=== PATIENT | male | born 1940 | race Caucasian/White ===

== ENCOUNTER 2018-06-24 10:58 | Observation (INO) ==
[2018-06-24 11:31] LABS: Hematocrit 40.5 % (42.0-52.0); Hemoglobin 13.1 gm/dL (13.5-18.0); Mean Cell Volume 101.8 fl (78-100); Mean Corpuscular Hemoglobin 32.9 pg (27-31); Mean Corpuscular Hgb Conc 32.3 g/dl (32-36); Mean Platelet Volume 8.4 fl (8-11.3); Neutrophil # 11.8 K/mm3 (1.3-6.0); Platelet Count 416 K/mm3 (150-450); Red Blood Count 3.98 M/mm3 (4.7-6.0); Red Cell Distribution Width 15.6 % (11.5-14.0)
[2018-06-24 11:39] LABS: Anion Gap 27.8 mmol/L (6.8-13.8); BUN/Creatinine Ratio 8.8 (9.0-21.6); Bilirubin, Total 0.9 mg/dL (0.0-1.1); Ca. Corrected For Albumin 9.9 mg/dL (8.4-10.2); Calcium * 9.4 mg/dL (7.9-10.9); Carbon Dioxide 18.3 mmol/L (24-32.6); Potassium 3.1 mmol/L (3.4-4.6)
[2018-06-24 13:11] LABS: Urine Bilirubin 3 mg/dl (NEGATIVE); Urine Blood Negative /ul (NEGATIVE); Urine Ketone 15 mg/dL (NEGATIVE); Urine Nitrite Negative (NEGATIVE); Urine Protein Negative (NEGATIVE); Urine Specific Gravity 1.015 SP.GR. (1.005-1.030); Urine Urobilinogen Normal (NORMAL)
[2018-06-24 13:17] LABS: Urine Appearance Clear (CLEAR); Urine Bacteria TRACE; Urine Color Dark Yellow; Urine RBC None Seen /hpf (0-5); Urine WBC 0-5 /hpf (0-5)
[2018-06-24] MEDS ORDERED: NORMAL SALINE 1,000 ML IV ONE ×2 (13:31→20:04)
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
[2018-06-24] MEDS ORDERED: NON-FORMULARY 1 DOSE DOSE (Acetaminophen 650 MG) PO PRN (19:40)
[2018-06-24] MEDS ORDERED: ACETAMINOPHEN 325 MG TABLET PO PRN (20:30)
[2018-06-24] MEDS ORDERED: FINASTERIDE 5 MG TABLET PO SCH (21:00)
[2018-06-24] MEDS ORDERED: FUROSEMIDE 40 MG TABLET PO SCH (21:00)
[2018-06-24] MEDS ORDERED: ROSUVASTATIN CALCIUM 20 MG TABLET PO SCH (21:00)
[2018-06-25 05:36] LABS: Hematocrit 35.3 % (42.0-52.0); Hemoglobin 11.3 gm/dL (13.5-18.0); Mean Cell Volume 100.9 fl (78-100); Mean Corpuscular Hemoglobin 32.3 pg (27-31); Mean Platelet Volume 8.4 fl (8-11.3); Neutrophil % 77.3 % (42-75.0); Platelet Count 340 K/mm3 (150-450); Red Cell Distribution Width 15.6 % (11.5-14.0); White Blood Count 10.4 K/mm3 (4.0-10.5)
[2018-06-25 05:40] LABS: Anion Gap 12.1 mmol/L (6.8-13.8); BUN/Creatinine Ratio 16.3 (9.0-21.6); Calcium * 8.6 mg/dL (7.9-10.9); Carbon Dioxide 28.7 mmol/L (24-32.6); Estimated Creat Clear 45.2; Potassium 2.8 mmol/L (3.4-4.6)
[2018-06-25] MEDS ORDERED: THIAMINE HCL 100 MG TABLET PO SCH (09:00)
[2018-06-25] MEDS ORDERED: SERTRALINE HCL 50 MG TABLET PO SCH (09:00)
[2018-06-25] MEDS ORDERED: ASPIRIN 325 MG TABLET.DR PO SCH (09:00)
[2018-06-25] MEDS ORDERED: CLOPIDOGREL BISULFATE 75 MG TABLET PO SCH (09:00)
[2018-06-25] MEDS: POTASSIUM CHLORIDE 20 MEQ TABLET.SA PO SCH ×2 (09:19→17:47)
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
[2018-06-26 01:06] VITALS: BP 123/50
== END 2018-06-25 19:55 ==
LOC: MS 10:58 → ER 10:58 → MS 14:45
PROVIDERS: ADMIT Family Medicine; ATTEND Family Medicine
CPT/HCPCS: 36415; 70450; 71020; 71046; 80048; 80053; 81001; 85025; 93005; 96360; 96361; 97161; 99285; G0378

== ENCOUNTER 2018-11-15 21:40 | Inpatient (IN) ==
[2018-11-15 22:12] LABS: Hemoglobin 10.9 gm/dL (13.5-18.0); Mean Cell Volume 102.2 fl (78-100); Mean Corpuscular Hemoglobin 34.8 pg (27-31); Mean Corpuscular Hgb Conc 34.1 g/dl (32-36); Mean Platelet Volume 9.2 fl (8-11.3); Neutrophil # 2.6 K/mm3 (1.3-6.0); Neutrophil % 50.3 % (42-75.0); Platelet Count 265 K/mm3 (150-450); Red Blood Count 3.13 M/mm3 (4.7-6.0); Red Cell Distribution Width 15.6 % (11.5-14.0); White Blood Count 5.2 K/mm3 (4.0-10.5)
[2018-11-15 22:32] LABS: Albumin * 1.8 gm/dl (3.4-5.0); BUN/Creatinine Ratio 7.3 (9.0-21.6); Bilirubin, Total 0.4 mg/dL (0.0-1.1); Ca. Corrected For Albumin 8.7 mg/dL (8.4-10.2); Calcium * 7.3 mg/dL (7.9-10.9); Carbon Dioxide 28.4 mmol/L (24-32.6); Total Protein 5.2 gm/dL (6.2-8.2)
[2018-11-15 22:36] LABS: Troponin I 0.027 ng/mL (0.00-0.10)
[2018-11-15 22:38] LABS: Potassium 2.4 mmol/L (3.4-4.6)
[2018-11-15] MEDS ORDERED: POTASSIUM CHLORIDE IN WATER 100 ML IV ONE (22:44)
--- NOTE | 2018-11-15 23:29 | ERNOTE ---
Dyspnea - Date Date of Service: 11/15/18 - General Presenting Symptoms: shortness of breath, other - weakness Time Seen by Provider: 11/15/18 21:52 Exam Limitations: no limitations - Immun/Allergies/Home Medications Immunizations: IMMUNIZATION HX Immunizations Up to Date Yes Allergies/Adverse Reactions: Allergies No Known Allergies Allergy (Verified 11/15/18 21:43) Home Medications: HOME MEDICATIONS Acetaminophen [Tylenol] 650 mg PO Q4H PRN 06/24/18 [Last Taken Unknown] Aspirin 325 mg PO DAILY 06/24/18 [Last Taken 06/24/18] Atorvastatin Calcium 40 mg PO HS 06/24/18 [Last Taken Unknown] Clopidogrel Bisulfate [Plavix] 75 mg PO DAILY 06/24/18 [Last Taken 06/24/18] Finasteride [Proscar] 5 mg PO HS 06/24/18 [Last Taken Unknown] Folic Acid 1 mg PO DAILY 06/24/18 [Last Taken 06/24/18] Furosemide [Lasix] 40 mg PO BID 06/24/18 [Last Taken 06/24/18] Sennosides [Senokot] 8.6 mg PO BID 06/24/18 [Last Taken 06/24/18] Potassium Chloride [K-Dur] 20 meq PO DAILY #30 tab 06/25/18 [Last Taken Unknown] HYDROcodone/ACETAMINOPHEN [Hydrocodon-Acetaminophen 5-325] 1 ea PO TID PRN [Last Taken Unknown] - History of Present Illness Narrative: patient c/o weakness , dyspnea, onset last several days Severity: moderate Treatment ZOOKEEPER: none Initiating event: Reports: none Frequency of episodes: Reports: occassional episodes Modifying Factors - (Improves): Reports: nothing Modifying Factors (Worsens): Reports: activity Associated Symptoms-Dyspnea: Reports: dizziness, lightheadedness, weakness Prior Treatment: Reports: recently seen, treated by physician Review of Systems - Review of Systems Constitutional: Present: See HPI, weakness, fatigue, malaise EYE: Present: no symptoms reported ENT: Present: no symptoms reported Respiratory: Present: See HPI, shortness of breath Cardiology: Present: no symptoms reported Gastrointestinal/Abdominal: Present: no symptoms reported Genitourinary: Present: no symptoms reported Musculoskeletal: Present: no symptoms reported Skin: Present: no symptoms reported Neurological: Present: dizziness/light-headedness, weakness Endocrine: Present: no symptoms reported Medical History (Updated 07/01/18 @ 13:56 by Adrien Herrera DO) History of BPH History of blood clot in brain Hx of constipation Hx of hyperlipidemia Hx of myocardial infarction hx of a feeding tube hx of lower extremity weakness Surgical History: Surgical History (Updated 07/01/18 @ 13:56 by Adrien Herrera DO) Hx of CABG Hx of skin graft Family History: Family History (Updated 06/24/18 @ 11:10 by Nola Miranda RN) Other No pertinent family history Social History: (Last Reviewed 11/15/18 @ 22:16 by Alondra Yates RN) Tobacco: Smoking Status: Never smoker Physical Exam - Physical Exam General Appearance: Present: mild distress, anxious Head Exam: Present: normal inspection, no evidence of injury Eye Exam: Normal inspection: bilateral, PERRL: bilateral, EOMI: bilateral Ears, Nose, Throat: Present: normal ENT inspection, normal pharynx Neck: Present: normal inspection, nontender Respiratory: Present: no respiratory distress, normal breath sounds, no accessory muscle use, chest nontender, lungs clear Cardiovascular/Chest: Present: regular rate, rhythm, no murmur, normal peripheral pulses Gastrointestinal/Abdominal: Present: normal bowel sounds, nontender, nondistended, soft, no organomegaly Back Exam: Present: normal inspection, normal range of motion, no CVA tenderness, no vertebral tenderness Extremity Exam: Present: normal inspection, non-tender Neurological Exam: Present: alert, oriented, normal mood/affect, no motor/sensory deficits Skin Exam: Present: normal color, warm/dry Lymphatic Exam: Present: no adenopathy Progress - Date and Time Seen: Date and Time: 11/15/18 23:26 condition unchanged, case discussed with dr bonner, accepted for admission to observation - Results and Orders Patient's Lab Results:: I have reviewed the patient's lab results. - Vital Signs Patient's Vital Signs:: I have reviewed the patient's vital signs. Vital Signs: Vital Signs 11/15/18 21:40 11/15/18 21:43 11/15/18 22:13 Temperature 36.5 C Pulse Rate 100 89 109 H Respiratory Rate 17 Blood Pressure 119/61 O2 Sat by Pulse Oximetry 99 11/15/18 22:24 11/15/18 23:00 Temperature Pulse Rate 88 85 Respiratory Rate 18 16 Blood Pressure 98/53 103/55 O2 Sat by Pulse Oximetry 99 98 - EKG EKG #1 EKG: NSR - X-Ray X-Ray #1 X-Ray: chest Interpretation: Interp. by me - copd, no acute process - Progress/Reassessment Chief Complaint: Dyspnea Progress:: Unchanged - Transfer of Care Expected Disposition: Admit Plan - Plan Plan: to admit to observation Departure Clinical Impression: Dizziness, Hypokalemia - Departure Disposition: Short Term Hospital Inpatient Condition: Stable
[2018-11-15] MEDS ORDERED: NORMAL SALINE 1,000 ML IV PRN (23:33)
[2018-11-16] MEDS ORDERED: POTASSIUM CHLORIDE 20 MEQ TABLET.SA PO SCH ×2 (09:00→21:00)
[2018-11-16] MEDS ORDERED: HYDROcodone/ACETAMINOPHEN 1 EACH TABLET PO PRN (09:32)
[2018-11-16] MEDS ORDERED: ACETAMINOPHEN 325 MG TABLET PO PRN (09:32)
[2018-11-16] MEDS ORDERED: DIATRIZOATE MEGLUMINE, SODIUM 30 ML BTL PO ONE (09:41)
[2018-11-16 10:25] LABS: Anion Gap 12.9 mmol/L (6.8-13.8); BUN/Creatinine Ratio 5.8 (9.0-21.6); Calcium * 7.7 mg/dL (7.9-10.9); Carbon Dioxide 28.5 mmol/L (24-32.6); Estimated Creat Clear 43.7
[2018-11-16 10:45] LABS: Potassium 2.4 mmol/L (3.4-4.6)
--- NOTE | 2018-11-16 13:23 | HP ---
Chief Complaint - Chief Complaint Date of Service: 11/16/18 Time of Service: 08:00 Chief Complaint: Weakness, dyspnea, lightheadedness, seizure like activity, History of Present Illness: Jj Christianson is a 78-year-old male presented to emergency room with increased weakness, shortness of breath, lightheadedness especially when sitting up, and also seizure-like activity when he would sit up. He was evaluated in the emergency room and admitted to rehydrate. His past medical history includes CABG of multiple vessels but he does not know which ones specifically. The surgery was done 4 or 5 years ago. He is also had 2 back surgeries one with a cadaver graft and the other with an autograft. He is also had cataract surgery. He reports that he is lost a great deal of weight. He has some choking episodes with swallowing on occasion and he has very early satiety eating only 25 to 50% of his meals which usually consists of TV dinners. He is 78 years old and is very thin. His abdomen is scaphoid and there is some nodularity on palpation especially in the lower mid to left lower quadrant area. His laboratory work shows him malnourished with very low protein and albumin. His potassium is low. His blood gases in ER showed him to have respiratory alkalosis with pH of 7.69. PO2 and O2 sats are normal but the CO2 is low. I had ordered a CT of his chest abdomen and pelvis with contrast. And taking him to x-ray in the wheelchair he became lightheaded and then had some seizure- like activity. He was on continuous cardiac monitoring which picked up a sustained run of what I believed to be SVT rather than VT. When he was laid back down he converted back into normal sinus rhythm but with a intermittent right bundle branch block and left anterior fascicular block. His baseline EKG does not show any blocks. The x-rays obviously were not completed and he was brought back to his room where he was placed back in bed in began to feel better almost immediately after lying down. I recommended and they have agreed that he should be transferred and I will contact [facility] to see if they will accept. He is being transferred for cardiology services but may also need neurological and gastroenterology services as well. His excessive weight loss that was not planned, early satiety, and marked hypoalbuminemia our concerns that need to be diagnosed as well. Medical History (Updated 11/15/18 @ 23:28 by Alfred Chatman DO) History of BPH History of blood clot in brain Hx of constipation Hx of hyperlipidemia Hx of myocardial infarction hx of a feeding tube hx of lower extremity weakness Surgical History: Surgical History (Updated 07/01/18 @ 13:56 by Adrien Herrera DO) Hx of CABG Hx of skin graft Family History: Family History (Updated 06/24/18 @ 11:10 by Nola Miranda RN) Other No pertinent family history Social History: (Last Reviewed 11/16/18 @ 00:14 by Fallon Christie RN) Tobacco: Smoking Status: Never smoker Review Of Systems (GEN) - Review of Systems Generalized/Overall Review: Present: Weakness, Malaise, Fatigue, Weight loss EENTM: Present: No Symptoms Reported Respiratory: Present: Shortness of Breath Cardiac: Present: Palpitations, Other - Lightheadedness Abdominal: Present: No Symptoms Reported, Other - He has difficulty swallowing and has early satiety Genitourinary: Present: No Symptoms Reported Musculoskeletal: Present: No Symptoms Reported Neurological: Present: Seizure - Seizure-like activity and appears to be associated with a tachydysrhythmia when he sits up., Weakness Skin: Present: Change in Color Immunizations: IMMUNIZATION HX Immunizations Up to Date Yes Allergies/Adverse Reactions: Allergies Allergy/AdvReac Type Severity Reaction Status Date / Time No Known Allergies Allergy Verified 11/15/18 21:43 Home Medications: HOME MEDICATIONS Acetaminophen [Tylenol] 650 mg PO Q4H PRN 06/24/18 [Last Taken Unknown] Aspirin 325 mg PO DAILY 06/24/18 [Last Taken 06/24/18] Atorvastatin Calcium 40 mg PO HS 06/24/18 [Last Taken Unknown] Clopidogrel Bisulfate [Plavix] 75 mg PO DAILY 06/24/18 [Last Taken 06/24/18] Finasteride [Proscar] 5 mg PO HS 06/24/18 [Last Taken Unknown] Folic Acid 1 mg PO DAILY 06/24/18 [Last Taken 06/24/18] Furosemide [Lasix] 40 mg PO BID 06/24/18 [Last Taken 06/24/18] HYDROcodone/ACETAMINOPHEN [Hydrocodon-Acetaminophen 5-325] 1 ea PO TID PRN 11/15/18 [Last Taken Unknown] Potassium Chloride [K-Dur] 20 meq PO HS 11/16/18 [Last Taken Unknown] Exam - Exam Vital Signs: Vital Signs - Last Taken Temp 36.9 C 11/16/18 11:18 Pulse 72 11/16/18 11:18 Resp 18 11/16/18 11:18 BP 112/57 11/16/18 11:18 Pulse Ox 93 11/16/18 11:18 Constitutional: Present: Alert, Oriented x3, Cooperative, Well developed, Elderly, Thin and frail ENT Exam: Present: normal ENT inspection, hard of hearing Eye Exam: bilateral eye: normal inspection, PERRL, EOMI Neck: Present: non-tender, full range of motion Back Exam: Present: decreased range of motion - Lumbar spine. There are incisions on the back from previous back surgeries. Breasts: Present: Nontender Respiratory: Present: lungs clear, no respiratory distress, no accessory muscle use, decreased breath sounds, expiration (prolonged) Cardiovascular/Chest: Present: normal peripheral pulses, regular rate, rhythm - But with intermittent paroxysmal SVT in which he is symptomatic. Peripheral Pulses: carotid (R): 2+, carotid (L): 2+, radial (R): 2+, radial (L): 2+ Abdomen: Present: Normal bowel sounds, soft, tender, mass palpable. Absent: guarding, rigidity, rebound tenderness, CVA tenderness, suprapubic tenderness /Rectal: Present: Exam deferred Extremity: Present: normal range of motion, non-tender, normal inspection, no pedal edema, no calf tenderness, normal capillary refill Skin Exam: Present: pallor Lymphatic: Present: no adenopathy Neurologic: Present: form tamper operator II-XII nml as tested, no motor/sensory deficits, alert, normal mood/affect, oriented x 3, other - Presbycusis Appearance: Present: disheveled Eye contact: Present: cooperative, good eye contact, normal speech Thoughts: Present: normal thought pattern, no apparent hallucination Diagnostic Studies: Abnormal Lab Results 11/15/18 11/15/18 11/15/18 Range/Units 21:57 22:12 22:38 RBC 3.13 L (4.7-6.0) M/mm3 Hgb 10.9 L (13.5-18.0) gm/dL Hct 32.0 L (42.0-52.0) % MCV 102.2 H (78-100) fl MCH 34.8 H (27-31) pg RDW 15.6 H (11.5-14.0) % pCO2 23.1 L (35.0-48.0) mmHg ABG pH 7.61 H (7.35-7.45) ABG O2 Sat (Measured) 98.3 H (94.0-98.0) % Potassium 2.4 L* (3.4-4.6) mmol/L Est GFR (Non-Af Amer) (60-130) mL/min BUN/Creatinine Ratio 7.3 L (9.0-21.6) Random Glucose (70-110) mg/dL Calcium 7.3 L (7.9-10.9) mg/dL ALT 0 L (19-67) U/L B-Natriuretic Peptide 1315 H (5-650) pg/mL Total Protein 5.2 L (6.2-8.2) gm/dL Albumin 1.8 L (3.4-5.0) gm/dl 11/16/18 Range/Units 09:47 RBC (4.7-6.0) M/mm3 Hgb (13.5-18.0) gm/dL Hct (42.0-52.0) % MCV (78-100) fl MCH (27-31) pg RDW (11.5-14.0) % pCO2 (35.0-48.0) mmHg ABG pH (7.35-7.45) ABG O2 Sat (Measured) (94.0-98.0) % Potassium 2.4 L* (3.4-4.6) mmol/L Est GFR (Non-Af Amer) 54 L (60-130) mL/min BUN/Creatinine Ratio 5.8 L (9.0-21.6) Random Glucose 120 H (70-110) mg/dL Calcium 7.7 L (7.9-10.9) mg/dL ALT (19-67) U/L B-Natriuretic Peptide (5-650) pg/mL Total Protein (6.2-8.2) gm/dL Albumin (3.4-5.0) gm/dl Laboratory Results WBC 5.2 K/mm3 (4.0-10.5) 11/15/18 21:57 RBC 3.13 M/mm3 (4.7-6.0) L 11/15/18 21:57 Hgb 10.9 gm/dL (13.5-18.0) L 11/15/18 21:57 Hct 32.0 % (42.0-52.0) L 11/15/18 21:57 MCV 102.2 fl (78-100) H 11/15/18 21:57 MCH 34.8 pg (27-31) H 11/15/18 21:57 MCHC 34.1 g/dl (32-36) 11/15/18 21:57 RDW 15.6 % (11.5-14.0) H 11/15/18 21:57 Plt Count 265 K/mm3 (150-450) 11/15/18 21:57 MPV 9.2 fl (8-11.3) 11/15/18 21:57 Immature Gran % (Auto) 0.20 % (0.001-0.429) 11/15/18 21:57 Immature Gran # (Auto) 0.01 K/mm3 (0.000-0.0310) 11/15/18 21:57 50.3 % (42-75.0) 11/15/18 21:57 39.0 % (20-51) 11/15/18 21:57 7.6 % (0.0-9) 11/15/18 21:57 2.3 % (0.0-3.0) 11/15/18 21:57 0.6 % (0.0-1.0) 11/15/18 21:57 Nucleated RBC % 0.0 k/mm3 (0-1) 11/15/18 21:57 2.6 K/mm3 (1.3-6.0) 11/15/18 21:57 2.01 k/mm3 (1.5-3.5) 11/15/18 21:57 0.4 k/mm3 (0.0-1.0) 11/15/18 21:57 0.1 k/mm3 (0.0-0.7) 11/15/18 21:57 Absolute Basophils 0.0 k/mm3 (0.0-0.1) 11/15/18 21:57 pCO2 23.1 mmHg (35.0-48.0) L 11/15/18 22:38 pO2 94.7 mmHg (83.0-108.0) 11/15/18 22:38 HCO3 22.6 mmol/L (21.0-28.0) 11/15/18 22:38 Total CO2 23.3 mmol/L (19.0-24.0) 11/15/18 22:38 Base Excess 2.2 mmol/L (-2.0-3.0) 11/15/18 22:38 ABG pH 7.61 (7.35-7.45) H 11/15/18 22:38 ABG O2 Sat (Measured) 98.3 % (94.0-98.0) H 11/15/18 22:38 Sodium 142 mmol/L (132-142) 11/16/18 09:47 142 mmol/L (130-142) 11/16/18 09:47 Potassium 2.4 mmol/L (3.4-4.6) L* 11/16/18 09:47 Chloride 103 mmol/L (97-106) 11/16/18 09:47 Carbon Dioxide 28.5 mmol/L (24-32.6) 11/16/18 09:47 12.9 mmol/L (6.8-13.8) 11/16/18 09:47 BUN 8 mg/dL (6-23) 11/16/18 09:47 1.37 mg/dL (0.4-1.4) 11/16/18 09:47 Est GFR (Non-Af Amer) 54 mL/min (60-130) L 11/16/18 09:47 5.8 (9.0-21.6) L 11/16/18 09:47 120 mg/dL (70-110) H 11/16/18 09:47 Calcium 7.7 mg/dL (7.9-10.9) L 11/16/18 09:47 Calcium Adj for Albumin 8.7 mg/dL (8.4-10.2) 11/15/18 22:12 0.4 mg/dL (0.0-1.1) 11/15/18 22:12 AST 15 U/L (0-48) 11/15/18 22:12 ALT 0 U/L (19-67) L 11/15/18 22:12 150 U/L (50-170) 11/15/18 22:12 0.027 ng/mL (0.00-0.10) 11/15/18 22:12 B-Natriuretic Peptide 1315 pg/mL (5-650) H 11/15/18 22:12 5.2 gm/dL (6.2-8.2) L 11/15/18 22:12 1.8 gm/dl (3.4-5.0) L 11/15/18 22:12 Assessment/Plan - Narrative Narrative: Mr. Christianson will be continuously monitored with cardiac monitoring until his departure. I am not starting any medications for concern of advancing his heart block. I will defer that to cardiology at [facility]. - Assessment/Plan (1) Fatigue Problem: Acute Qualifiers: Fatigue type: chronic, unspecified Qualified Code(s): R53.82 - Chronic fatigue, unspecified (2) Malnutrition Problem: Acute Qualifiers: Malnutrition type: protein-calorie malnutrition Protein-calorie malnutrition severity: moderate Qualified Code(s): E44.0 - Moderate protein- calorie malnutrition (3) Abnormal weight loss Problem: Acute (4) Respiratory alkalosis Problem: Acute (5) Hypovolemia Problem: Acute (6) Pre-syncope Problem: Acute
--- NOTE | 2018-11-16 14:30 | DS ---
Transfer Discharge Summary - Diagnosis(s)/Problems (1) Fatigue Problem: Acute (2) Malnutrition Problem: Acute (3) Abnormal weight loss Problem: Acute (4) Respiratory alkalosis Problem: Acute (5) Hypovolemia Problem: Acute (6) Pre-syncope Problem: Acute (7) Paroxysmal SVT (supraventricular tachycardia) Problem: Acute (8) Seizure-like activity Problem: Acute (9) Hypokalemia Problem: Acute - Course Description of Stay: Jj Christianson was admitted for general debilitation reasons with weakness, shortness of breath, near syncope, episodes of seizure-like activity when sitting up. His evaluation in the ER showed him to be hypokalemic at 2.4, hypoproteinemic and hypoalbuminemic, mild leukocytosis, and unexplained abnormal weight loss. His examination shows him to be hard of hearing but otherwise is alert and appropriate in answering. At rest in a supine or semi-recumbent position he is in normal sinus rhythm. When he sits up he occasionally goes into a tachydysrhythmia which I believe to be paroxysmal SVT and then when he lies down goes back into normal sinus rhythm. This morning I witnessed him have an episode of lightheadedness while he was up sitting on a bedside commode. He had not been straining to stool and only passed some flatus. When he was laid back down he began to feel better. His renal status is excellent. I elected to proceed with CT chest abdomen and pelvis with contrast. And sitting him up in a wheelchair to take him to x-ray he developed another of his near syncopal events and in fact his eyes did roll up and he had some twitching. He was on a nurse monitoring at that time which revealed a sustained episode of SVT. He was brought back to his room and placed in bed and began to feel better almost immediately. The x-rays were not completed. The twelve-lead EKG shows normal sinus rhythm at baseline. Twelve-lead after lying back down however shows what appears to be a left anterior fascicular block and perhaps a right bundle branch block. These are also intermittent and may be related to his profound hypokalemia. He has known coronary disease and had a CABG procedure done about 5 years ago. Believing he needs a cardiology evaluation I have elected to send him to [facility] where he will be admitted by Dr. Ely to CCU. She will coordinate his cardiology consultations. At the time of departure he is alert awake and in no distress. His heart is in normal sinus rhythm. He was given a potassium rider series in the emergency room and started on oral potassium. This was given last night about 10:00. I repeated his electrolytes this morning and potassium has not changed and is still at 2.4. I would like to thank Dr. Ely for her kind assistance in getting this patient transferred to [facility]. Procedures Performed: none - Results and Findings Results and Findings: Laboratory Results - last 24 hr 11/15/18 11/15/18 11/15/18 21:57 22:12 22:38 WBC 5.2 RBC 3.13 L Hgb 10.9 L Hct 32.0 L MCV 102.2 H MCH 34.8 H MCHC 34.1 RDW 15.6 H Plt Count 265 MPV 9.2 Immature Gran % (Auto) 0.20 Immature Gran # (Auto) 0.01 Neutrophils % 50.3 Lymphocytes % 39.0 Monocytes % 7.6 Eosinophils % 2.3 Basophils % 0.6 Nucleated RBC % 0.0 Neutrophils # 2.6 Lymphocytes # 2.01 Monocytes # 0.4 Eosinophils # 0.1 Absolute Basophils 0.0 pCO2 23.1 L pO2 94.7 HCO3 22.6 Total CO2 23.3 Base Excess 2.2 ABG pH 7.61 H ABG O2 Sat (Measured) 98.3 H Sodium 142 Plasma Sodium 142 Potassium 2.4 L* Chloride 104 Carbon Dioxide 28.4 Anion Gap 12.0 BUN 9 D Creatinine 1.23 Est GFR (Non-Af Amer) 61 BUN/Creatinine Ratio 7.3 L Random Glucose 97 Calcium 7.3 L Calcium Adj for Albumin 8.7 Total Bilirubin 0.4 AST 15 ALT 0 L Alkaline Phosphatase 150 Troponin I 0.027 B-Natriuretic Peptide 1315 H Total Protein 5.2 L Albumin 1.8 L 11/16/18 09:47 WBC RBC Hgb Hct MCV MCH MCHC RDW Plt Count MPV Immature Gran % (Auto) Immature Gran # (Auto) Neutrophils % Lymphocytes % Monocytes % Eosinophils % Basophils % Nucleated RBC % Neutrophils # Lymphocytes # Monocytes # Eosinophils # Absolute Basophils pCO2 pO2 HCO3 Total CO2 Base Excess ABG pH ABG O2 Sat (Measured) Sodium 142 Plasma Sodium 142 Potassium 2.4 L* Chloride 103 Carbon Dioxide 28.5 Anion Gap 12.9 BUN 8 Creatinine 1.37 Est GFR (Non-Af Amer) 54 L BUN/Creatinine Ratio 5.8 L Random Glucose 120 H Calcium 7.7 L Calcium Adj for Albumin Total Bilirubin AST ALT Alkaline Phosphatase Troponin I B-Natriuretic Peptide Total Protein Albumin - Medications Medications: Active Medications Sodium Chloride (Sodium Chloride 0.9%) 1,000 mls @ 30 mls/hr IV .Q24H PRN PRN Reason: HYDRATION Stop: 12/15/18 23:34 Last Admin: 11/16/18 06:30 Dose: 30 mls/hr Documented by: Potassium Chloride (K-Dur) 40 meq PO BIDWM BRONSON Stop: 12/16/18 09:01 Last Admin: 11/16/18 09:30 Dose: 40 meq Documented by: Discontinued Medications Diatrizoate Meglum/Diatrizoate Sod (Gastrografin Solution) 60 ml PO ONCE ONE Stop: 11/16/18 09:42 Last Admin: 11/16/18 10:04 Dose: 60 ml Documented by: Potassium Chloride/Water (Kcl 10 Meq/100 Ml Piggyback) 100 mls @ 100 mls/hr IV ONCE ONE Stop: 11/15/18 23:43 Last Infusion: 11/16/18 00:09 Dose: Infused Documented by: - Disposition Disposition: Short Term Hospital Inpatient Condition: Stable Discharge Date: 11/16/18 Discharge Time: 14:27
[2018-11-16 15:40] VITALS: BP 132/52
[2018-11-16] MEDS ORDERED: FINASTERIDE 5 MG TABLET PO SCH (21:00)
[2018-11-17] MEDS ORDERED: FOLIC ACID 1 MG TABLET PO SCH (09:00)
[2018-11-17] MEDS ORDERED: CLOPIDOGREL BISULFATE 75 MG TABLET PO SCH (09:00)
[2018-11-17] MEDS ORDERED: ASPIRIN 325 MG TABLET.DR PO SCH (09:00)
== END 2018-11-16 15:00 | disposition short-term general hospital (02) | DRG 641 ==
LOC: MS 21:40 → ER 21:40 → MS 11-16 00:03
PROVIDERS: ADMIT Family Medicine; ATTEND Family Medicine
DX: I47.1 Supraventricular tachycardia; R53.83 Other fatigue; E88.09 Other disorders of plasma-protein metabolism, not elsewhere classified; Z95.1 Presence of aortocoronary bypass graft; E87.3 Alkalosis; E87.6 Hypokalemia; R56.9 Unspecified convulsions; E77.8 Other disorders of glycoprotein metabolism; E86.1 Hypovolemia; Z68.20 Body mass index [BMI] 20.0-20.9, adult; E44.0 Moderate protein-calorie malnutrition; R55 Syncope and collapse; D72.829 Elevated white blood cell count, unspecified; R06.00 Dyspnea, unspecified
CPT/HCPCS: 36415; 36600; 71010; 71045; 80048; 80053; 82803; 83519; 83880; 84484; 85025; 87040; 93005; 93041; 94760; 96365; 99284; G0378